=== PATIENT | female | born 1955 | race Hispanic/Latino ===

== ENCOUNTER 2019-09-22 20:36 | Emergency (ER) | payer MEDICARE ==
[~2019-09-22] VITALS: Ht 162.6 cm; Wt 68.6 kg
[2019-09-22] MEDS ORDERED: AMOXICILLIN500 MG PO (22:41)
[2019-09-22 23:03] VITALS: BP 149/87
== END 2019-09-22 23:02 | disposition home or self-care (01) ==
LOC: ED 20:36
DX: J02.0 Streptococcal pharyngitis (principal); E11.9 Type 2 diabetes mellitus without complications; I10 Essential (primary) hypertension